=== PATIENT | female | born 2000 | race Caucasian/White ===

== ENCOUNTER 2018-08-04 15:56 | Emergency (ER) | payer MEDICAID ==
[~2018-08-04] VITALS: Wt 90.0 kg
[2018-08-04 16:00] VITALS: BP 155/77; PULSE 90; RESP 18
[2018-08-04] MEDS ORDERED: IBUPROFEN 600 MG TAB PO ONE (17:00)
[2018-08-04] MEDS ORDERED: IBUP-1542 PO (18:07)
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
== END 2018-08-04 19:16 | disposition home or self-care (01) ==
LOC: FTE 15:56
DX: S82.831A Other fracture of upper and lower end of right fibula, initial encounter for closed fracture (principal); V00.131A Fall from skateboard, initial encounter
CPT/HCPCS: 29515; 73590; 73610; Z7502; Z7610